=== PATIENT | male | born 2000 | race African-American/Black ===

== ENCOUNTER 2018-07-24 20:24 | Observation (INO) | payer OTHER ==
[2018-07-24 20:46] LABS: Bilirubin Negative (Negative); Blood, Urine Negative (Negative); Clarity CLEAR (Clear); Glucose, Urine (Dipstick) Negative (Negative); Leukocyte Moderate (Negative); Nitrite Negative (Negative); Protein, Urine (Dipstick) Negative (Neg-Trace); Specific Gravity, Urine 1.023 (1.002-1.036); Urobilinogen 0.2 mg/dL (0.2-1.0)
[2018-07-24 20:48] LABS: Bacteria/HPF None Seen HPF (None Seen); Hyaline Casts/LPF 0-3 HYALINE CAST LPF (0-3 Hyaline); RBC/HPF 0-3 HPF (0-3); Squamous Epithelial 0-3 HPF (0-3); WBC/HPF 21-50 HPF (0-3)
[2018-07-24 21:05] LABS: #Basophils 0.1 thou/uL (0.0-0.2); #Eosinphils 0.3 thou/uL (0.0-0.7); #Lymphocytes 2.1 thou/uL (1.20-3.40); #Monocytes 0.6 thou/uL (0.11-0.59); #Neutrophils 3.9 thou/uL (1.40-6.50); %Eosinophils 4.5 % (0.0-10.0); %Lymphocytes 29.9 % (28.0-48.0); %Monocytes 8.1 % (0.0-4.0); %Neutrophils 56.6 % (31.0-61.0); Hemoglobin 15.2 g/dL (14.0-18.0); Mean Corpuscular HGB CONC 32.4 g/dL (32.0-36.0); Mean Corpuscular Hemoglobin 26.7 pg (25.0-35.0); Mean Corpuscular Volume 82.5 fL (78.0-98.0); Mean Platelet Volume 8.3 fL (7.4-10.4); Platelet Count 199 thou/uL (130-400); RBC Distribution Width 11.7 % (11.5-14.5); Red Blood Cell (RBC) Count 5.68 mill/uL (4.00-5.20); White Blood Cell (WBC) Count 6.9 thou/uL (4.8-10.8)
[2018-07-24 22:27] LABS: ALT (SGPT) 17 U/L (8-55); AST (SGOT) 25 U/L (5-34); Albumin 4.7 g/dL (3.5-5.0); Alkaline Phosphatase 89 U/L (Less than 750); Anion Gap 13 mmol/L (10-20); BUN (Urea Nitrogen) 19 mg/dL (8.9-20.6); Bilirubin, Total 0.4 mg/dL (0.2-1.2); Calc. Creatinine Clearance 0 mL/min (70-130); Calcium 9.6 mg/dL (7.8-10.44); Carbon Dioxide 25 mmol/L (22-29); Chloride 101 mmol/L (98-107); Estimated GFR-MDRD 83; Globulin 3.4 g/dL (2.4-3.5); Glucose 91 mg/dL (70-105); Lipase 18 U/L (8-78); Protein, Total 8.1 g/dL (6.0-8.3); Sodium 135 mmol/L (136-145)
--- NOTE | 2018-07-24 23:12 | CT ---
CT ABDOMEN AND PELVIS WITH IV CONTRAST: 07/24/18 HISTORY: Abdominal pain. FINDINGS: Lung bases are clear. The liver, spleen, kidneys, adrenal glands, and pancreas have a normal appearan ce. Urinary bladder is unremarkable. Lack of oral contrast limits evaluation of the bowel. Ascending just lateral to the cecum is a dilate d appendix measuring up to 1.1 cm with thickening of the wall and subtle stranding in the adjacent fa t. No free air or free fluid. IMPRESSION: Acute appendicitis. POS: HEYDI
[2018-07-25] MEDS ORDERED: Piperacillin/Tazobactam 4.5 GM VIAL ONE (00:14)
[2018-07-25] MEDS ORDERED: Sodium Chloride 0.9% 100 ML ONE (00:14)
[2018-07-25] MEDS ORDERED: Sodium Chloride 0.9% 1,000 ML IV SCH ×2 (01:28→07:00)
[2018-07-25] MEDS ORDERED: Morphine 4 MG/ML VIAL IV PRN (01:29)
[2018-07-25 02:04] VITALS: BMI 25.6
[2018-07-25] MEDS ORDERED: Ketorolac Tromethamine 30 MG/ML VIAL IVP PRN ×2 (05:22→06:58)
[2018-07-25] MEDS ORDERED: Piperacillin/Tazobactam 4.5 GM in Sodium Chloride 0.9% 100 ML IVPB SCH ×2 (06:00→12:00)
[2018-07-25] MEDS ORDERED: Acetaminophen 1,000 MG in Premix Bag 1 BAG IVPB PRN (06:58)
--- NOTE | 2018-07-25 07:14 | HP ---
HISTORY OF PRESENT ILLNESS: Mr. Ravi Pulido is a 18-year-old jerry [employer] student, [employer]. His dad has driven down from [place] and is present during this discussion. The patient has a 24-hour history of right lower quadrant pain, presented in the emergency room. History and exam c onsistent with appendicitis. He initially suffered anorexia, but is hungry now. Pain is worse with movement. LABORATORY DATA AND IMAGING: White count is 6, hemoglobin 15. Comprehensive metabolic profile is no rmal. CAT scan of abdomen and pelvis obtained reveals changes consistent with appendicitis. He has been admitted to the hospital overnight with intravenous fluids, antibiotics, and plan is for laparos copic video appendectomy. ALLERGIES: None. TOBACCO: Rarely. ALCOHOL: Rarely. MEDICATIONS: None. PAST MEDICAL HISTORY: Noncontributory. PAST SURGICAL HISTORY: Noncontributory. REVIEW OF SYSTEMS: Noncontributory. FAMILY HISTORY: Noncontributory. PHYSICAL EXAMINATION: VITAL SIGNS: 6 foot 5, 216 pounds, 25 BMI. 97.4, 51, 128/72. HEENT: Unremarkable. LUNGS: Clear to auscultation. CARDIAC: Regular rate and rhythm without murmur or gallop. ABDOMEN: Soft, tenderness in his right lower quadrant with guarding. EXTREMITIES: Unremarkable. LABORATORY DATA: As noted above. ASSESSMENT AND PLAN: Acute appendicitis. Recommend laparoscopic video appendectomy. Risk of infect ion, bleeding, visceral injury explained, possibly open procedure explained. He understands these ri sks and benefits and consents.
[2018-07-25] MEDS ORDERED: Ketorolac Tromethamine 30 MG/ML VIAL ONE (10:00)
[2018-07-25] MEDS ORDERED: Fentanyl 100 MCG/2 ML VIAL ONE ×3 (12:02→13:38)
[2018-07-25] MEDS ORDERED: Midazolam HCl 2 mg/2 ml Vial ONE (12:02)
[2018-07-25] MEDS ORDERED: Bupivacaine HCl 0.5%/Epinephrine 1:200,000/PF 30 ml Vial ONE (12:30)
[2018-07-25] MEDS ORDERED: HYDROmorphone 2 MG/ML VIAL ONE (12:34)
[2018-07-25] MEDS ORDERED: SUGAMMADEX SODIUM 200 MG/2 ML VIAL ONE (13:17)
[2018-07-25] MEDS ORDERED: Ibuprofen 600 MG TAB PO PRN (13:32)
[2018-07-25] MEDS ORDERED: traMADol HCl 50 MG TAB PO PRN ×2 (13:32)
[2018-07-25] MEDS ORDERED: Acetaminophen 500 MG TAB PO PRN (13:32)
[2018-07-25] MEDS ORDERED: PACU-Morphine 4MG/ML VIAL SLOW IVP PRN (13:37)
[2018-07-25] MEDS ORDERED: HYDROmorphone 2 MG/ML VIAL SLOW IVP PRN (13:37)
[2018-07-25] MEDS ORDERED: Promethazine HCl 25 MG/ML VIAL IM PRN (13:37)
[2018-07-25] MEDS ORDERED: Promethazine HCl 25 MG/ML VIAL SLOW IVP PRN (13:37)
[2018-07-25] MEDS ORDERED: Ondansetron HCl/PF 4 MG/2 ML Vial IVP PRN (13:37)
[2018-07-25] MEDS ORDERED: Meperidine HCl/PF 25 MG/ML VIAL SLOW IVP PRN (13:37)
[2018-07-25] MEDS ORDERED: Morphine Sulfate 2 MG/ML SYRINGE SLOW IVP PRN (13:37)
--- NOTE | 2018-07-25 13:56 | OP ---
DATE OF PROCEDURE: 07/25/2018 PREOPERATIVE DIAGNOSIS: Acute appendicitis. POSTOPERATIVE DIAGNOSIS: Acute appendicitis. PROCEDURE: Laparoscopic video appendectomy. SURGEON: Iraj Dawson M.D. ANESTHESIA: General. Local 0.5% Marcaine with epinephrine, 30 mL total volume used. PROCEDURE: Patient was taken to the operating room under general anesthesia, abdomen was clipped of hair, prepared with ChloraPrep, draped in routine fashion. Vincent catheter placed at the beginning of the procedure and removed at the end. Infraumbilical incision made and pneumoperitoneum to 15 mmHg obtained with a Veress needle, replacing with an 5 port and video laparoscope inserted. Right latera l subcostal incision was made. Suprapubic incision was made and a 5 and 12 mm port placed respective ly under laparoscopic visualization. Appendix was acutely inflamed without purulence. Mesoappendix taken down with LigaSure. Stump of the appendix divided cecal stump with Endo blue load SANGEETHA st apler. Hemostasis gained with clips. Good hemostasis obtained. Irrigant and pneumoperitoneum evacu ated. The appendix removed and submitted to Pathology. All instruments removed and all skin incisio ns were approximated with interrupted subdermal 4-0 Monocryl after suprapubic fascia approximated wit h 0 Vicryl UR needle. Patient tolerated the procedure well. Dermabond applied.
--- NOTE | 2018-07-25 14:03 | DIS ---
DATE OF ADMISSION: 07/25/2018 DATE OF DISCHARGE: 07/25/2018 DISCHARGE DIAGNOSIS: Acute appendicitis. PROCEDURES THIS HOSPITALIZATION: CT scan of abdomen and pelvis in the emergency room and laparoscopi c video appendectomy. HISTORY: A 18-year-old black male [facility] [employer] student, [employer], presents with a history of appendicitis, undergoing CAT scan confirming that. He received intravenous fluids and antibiotics overnight and u nderwent laparoscopic video appendectomy. Discharged home postoperatively. Follow up in my office in 1-2 weeks. Tylenol, ibuprofen for pain, Ultram p.r.n. Diet and activity as tolerated, no restrictions.
[2018-07-25] MEDS ORDERED: Glycopyrrolate 0.2 MG/ML 5 ML SYRINGE ONE (14:57)
[2018-07-25] MEDS ORDERED: PROPOFOL 200 MG/20 ML VIAL ONE (14:57)
[2018-07-25] MEDS ORDERED: Lidocaine 1% PF 5 ML VIAL ONE (14:57)
[2018-07-25] MEDS ORDERED: Succinylcholine Chloride 20 MG/ML 10 ml SYRINGE FS ONE (14:57)
[2018-07-25] MEDS ORDERED: Dexamethasone 20 MG/5 ML VIAL ONE (14:57)
[2018-07-25] MEDS ORDERED: Ondansetron PF 4 MG/2 ML Vial ONE (14:57)
[2018-07-25 16:22] VITALS: BP 124/74; TEMP 98.1
== END 2018-07-25 16:15 | disposition home or self-care (01) ==
LOC: ERS 20:24 → SJJU 07-25 01:27
PROVIDERS: ADMIT Specialist; ATTEND Specialist
PROC: 0DTJ4ZZ Resection of Appendix, Percutaneous Endoscopic Approach (ICD-10-PCS; principal; 2018-07-25)
DX: K35.80 Unspecified acute appendicitis (principal)
CPT/HCPCS: 36415; 74177; 80053; 81003; 81015; 83690; 85025; 88304; 90471; 90686; 96361; 96365; 96374; 96375; G0008; G0378; J0131; J0670; J1100; J1170; J1885; J2001; J2250; J2405; J2543; J2704; J3010; J7050